=== PATIENT | male | born 1980 | race Caucasian/White ===

== ENCOUNTER 2017-07-03 11:44 | Emergency (ER) | payer MEDICAID | END 2017-07-03 14:00 | disposition home or self-care (01) | LOC: D.ER 11:44 | DX: G43.909 Migraine, unspecified, not intractable, without status migrainosus (principal); I10 Essential (primary) hypertension ==

== ENCOUNTER 2017-07-23 19:09 | Emergency (ER) | payer MEDICAID | END 2017-07-23 21:05 | disposition home or self-care (01) | LOC: D.ER 19:09 | DX: B35.3 Tinea pedis (principal); M72.2 Plantar fascial fibromatosis; I10 Essential (primary) hypertension ==

== ENCOUNTER 2017-08-25 15:55 | Emergency (ER) | payer MEDICAID ==
[2017-10-29 15:03] VITALS: BMI 34.9
== END 2017-08-25 18:59 | disposition home or self-care (01) ==
LOC: D.ER 15:55
DX: J01.90 Acute sinusitis, unspecified (principal); H10.32 Unspecified acute conjunctivitis, left eye; I10 Essential (primary) hypertension

== ENCOUNTER → 2017-10-21 15:43 | Emergency (ER) | payer MEDICAID ==
[~2017-10-21 15:43] MED LIST: OMNICEF300 MG PO; ZESTRIL20 MG PO
[2017-10-29 15:03] VITALS: BMI 34.9
== END | disposition home or self-care (01) ==
LOC: D.ER 15:43
DX: L03.113 Cellulitis of right upper limb (principal); I10 Essential (primary) hypertension

== ENCOUNTER 2017-10-29 11:04 | Inpatient (IN) | payer MEDICAID ==
[~2017-10-29] VITALS: Ht 182.9 cm; Wt 114.5 kg
[2017-10-29 13:08] LABS: BASOPHILS 1.2 % (0-2); EOSINOPHILS 1.2 % (0-7); HEMOGLOBIN 15.6 g/dL (13.5-17.5); LYMPHOCYTES 23.6 % (15-50); MCHC 35.5 g/dL (31.0-37.0); MCV 87.3 fL (80.0-100.0); MEAN PLATELET VOLUME 9.6 fL (7.4-10.4); MONOCYTES 23.8 % (2-11); NEUTROPHILS 50.2 % (40-80); PLATELET COUNT 137 10x3/uL (130-400); RBC 5.04 10x6/uL (4.20-6.10); RDW 13.6 % (11.5-14.5)
[2017-10-29 13:17] LABS: CALC OSMOLALITY 274 mosm/kg (275-300); CALCIUM 9.1 mg/dL (8.5-10.1); CARBON DIOXIDE 30.7 mmol/L (21.0-32.0); CHLORIDE - SERUM 101 mmol/L (98-107); GLUCOSE 130 mg/dL (74-106); POTASSIUM - SERUM 3.4 mmol/L (3.5-5.1); SODIUM 138 mmol/L (136-145); UREA NITROGEN 5 mg/dL (7-18); eGFR NON AFRICAN AMERICAN 88 mL/min (90-120)
--- NOTE | 2017-10-29 14:10 | NUR ---
RECEIVED PT IN BED AAOX4 RESP UNLABORED SKIN W/D LEFT FACE AROUND LT EYE RED AND SWOLLEN I&D DONE TO JUST BELOW LT EYE INCISION NOTED PT STUTTERS AT TIMES DENIES ANY NEEDS OR PAIN AT THIS TIME SALINE LOCK INTACT AND PATENT TO LAC SITE FREE OF REDNESS OR EDEMA WILL CONTINUE TO MONITOR
[2017-10-29] MEDS ORDERED: ZESTRIL20 MG PO (14:13)
[2017-10-29 14:15] VITALS: BMI 34.9
[2017-10-29 15:03] VITALS: Ht 182.9 cm; Wt 114.5 kg
[2017-10-29 17:21] VITALS: BP 116/68
[2017-10-29 21:08] VITALS: BP 107/55
[2017-10-30 01:27] VITALS: BP 109/73
[2017-10-30 06:51] VITALS: BP 95/56
--- NOTE | 2017-10-30 07:37 | NUR ---
PT AWAKE IN BED WATCHING TV. NO C/O VOICED. WILL MONITOR.
[2017-10-30 08:24] VITALS: BP 112/66
[2017-10-30 12:11] VITALS: BP 122/80
[2017-10-30 17:02] VITALS: BP 126/77
--- NOTE | 2017-10-30 19:45 | NUR ---
PT RESTING IN BEDSIDE CHAIR. ALERT/ORIENTED. LARGE WOUND UNDER LEFT EYE. CURRENTLY WITH ABT INFUSING. NOTED SPEECH IMPEDIMENT. VERY PLEASANT, NO NEEDS AT THIS TIME. CPOC.
[2017-10-30 21:07] VITALS: BP 125/83
[2017-10-31 00:58] VITALS: BP 120/81
--- NOTE | 2017-10-31 02:29 | NUR ---
IV TEFLARO UP AND INFUSING. ALSO PROVIDED PT WITH A PAIN PILL FOR FACIAL DISCOMFORT. CPOC
[2017-10-31 05:19] VITALS: BP 114/75
--- NOTE | 2017-10-31 07:25 | NUR ---
PATIENT IN BED WATCHING TELEVISION AT THIS TIME. PATIENT DENIES ANY NEEDS OR REQUESTS AND DENIES ANY PAIN. NO DRAINAGE NOTED AT THIS TIME FROM LEFT EYE. NO PROBLEMS NOTED. CALL LIGHT AND WATER ARE WITHIN REACH.
[2017-10-31 08:02] VITALS: BP 23/66
--- NOTE | 2017-10-31 09:59 | NUR ---
UP IN CHAIR WITH CALL LIGHT IN REACH. WILL MONITOR NEEDS.
[2017-10-31 13:05] VITALS: BP 137/82
[2017-10-31] MEDS ORDERED: OMNICEF300 MG PO (14:16)
--- NOTE | 2017-10-31 15:45 | NUR ---
DISCHARGE INSTRUCTIONS REVIEWED WITH PATIENT. IV REMOVED, CATHETER INTACT. NO PROBLEMS NOTED. PATIENT LEAVES FACILITY AT THIS TIME VIA PRIVATE TRANSPORTATION.
--- NOTE | 2017-10-31 17:17 | NUR ---
Patient Name: EVA LAAMR Admission Status: ER Accout number: [id number] Admission Date: 10-29-2017 : 1980 Admission Diagnosis: Attending: GILES HORTON Current LOS: 2 Anticipated DC Date: 10-31-2017 Planned Disposition: Home Primary Insurance: MEDICAID [place] LATE ENTRY: Discharge Planning Comments: * Is the patient Alert and Oriented? Yes 0 * How many steps to enter\exit or inside your home? 5-6 0 * PCP DR. GUTIÉRREZ 0 * Pharmacy [facility] ON [address] * Preadmission Environment Home with Family 0 * ADLs Independent 0 * Equipment None 0 * Other Equipment NO MEDICAL EQUIPMENT PROVIDER PREFERENCE 0 * List name and contact numbers for known caregivers / representatives who currently or will assist patient after discharge: DWIGHT DANIELLE, AUNT, UNKNOWN PHONE NUMBER 0 * Community resources currently utilized None 0 * Please name any agencies selected above. NONE 0 * Additional services required to return to the preadmission environment? No 0 * Can the patient safely return to the preadmission environment? Yes 0 * Has this patient been hospitalized within the prior 30 days at any hospital? No 0 CM MET WITH PT IN ROOM TO DISCUSS DISCHARGE PLANNING AND NEEDS. PT REPORTS LIVING AT HOME INDEPENDENTLY WITH HIS AUNT AND UNCLE IN [place]. PT HAS NO MEDICAL EQUIPMENT AND NO OUTSIDE SERVICES ASSISTING IN THE HOME. CM DISCUSSED AVAILABILITY OF HOME HEALTH, REHAB SERVICES AND MEDICAL EQUIPMENT. PT DENIES DISCHARGE NEEDS, REPORTS HE WILL BE DRIVING HIS JEEP FOR DISCHARGE HOME TODAY. 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 Viscosity Tester: Yakov Jose
--- NOTE | 2017-12-02 09:56 | DS ---
PATIENT:EVA LAMAR :[birth year] MEDICAL RECORD: [id number] DISCHARGE SUMMARY ADMISSION DATE: 10/29/17 DISCHARGE DATE: 10/31/17 DATE OF ADMISSION: 10/29/2017. DATE OF DISCHARGE: 10/31/2017. ADMISSION DIAGNOSES: 1. Left facial abscess. 2. Hypertension. 3. Tobacco dependence syndrome. DISCHARGE DIAGNOSES: 1. Left facial abscess. 2. Hypertension. 3. Tobacco dependence syndrome. PROCEDURE: None. CONSULTATIONS: None. REPORT OF HOSPITALIZATION: The patient was admitted to the hospital with swelling and abscess of the left face. This had been opened up and drained and he has been started on Bactrim, but he continued to have symptoms and swelling. He was eventually seen in our ER and admitted to the hospital. The patient had cultures taken and these cultures eventually showed that it was E. coli that grew in the wound that was resistant to Bactrim. Once we had these results back and with IV antibiotics, we noticed an improvement in his symptoms and the swelling and eventually was felt to be stable for discharge home. DISCHARGE INSTRUCTIONS: Return to clinic or call with any questions or concerns, fevers, chills, or worsening pain. DISCHARGE MEDICATIONS: Omnicef 300 mg q.12 hours and lisinopril 20 mg daily. He is to return to clinic and see me as needed. TRANSINT:[id number] Voice Confirmation ID: [id number] DOCUMENT ID: [id number] GILES HORTON MD at 0956 CC: [id number] DICTATION DATE: 11/17/17 1227 SPLINE ROLLING MACHINE JOB SETTER: 11/17/17 1651 DIS IN 10/31/17 [id number] [place] [address]
== END 2017-10-31 15:47 | disposition home or self-care (01) | DRG 603 ==
LOC: D.ER 11:04 → D.M2 12:44 → D.SDCHOLD 10-31 13:38 → D.M2 10-31 13:38
PROVIDERS: Emergency Medicine; ADMIT Surgery
DX: L02.01 Cutaneous abscess of face (principal); L03.211 Cellulitis of face; I10 Essential (primary) hypertension; B96.20 Unspecified Escherichia coli [E. coli] as the cause of diseases classified elsewhere

== ENCOUNTER 2017-12-18 18:36 | Emergency (ER) | payer MEDICAID ==
[2017-10-29 15:03] VITALS: BMI 34.9
== END 2017-12-18 20:00 | disposition home or self-care (01) ==
LOC: D.ER 18:36
DX: L03.011 Cellulitis of right finger (principal); I10 Essential (primary) hypertension

== ENCOUNTER 2017-12-29 16:42 | Emergency (ER) | payer MEDICAID ==
[2017-10-29 15:03] VITALS: BMI 34.9
== END 2017-12-29 21:08 | disposition home or self-care (01) ==
LOC: D.ER 16:42
DX: S46.911A Strain of unspecified muscle, fascia and tendon at shoulder and upper arm level, right arm, initial encounter (principal); X58.XXXA Exposure to other specified factors, initial encounter; Y93.89 Activity, other specified; Y92.89 Other specified places as the place of occurrence of the external cause; F17.200 Nicotine dependence, unspecified, uncomplicated

== ENCOUNTER 2018-01-18 13:50 | Emergency (ER) | payer MEDICAID ==
[2017-10-29 15:03] VITALS: BMI 34.9
== END 2018-01-18 16:32 | disposition home or self-care (01) ==
LOC: D.ER 13:50
DX: J11.1 Influenza due to unidentified influenza virus with other respiratory manifestations (principal)

== ENCOUNTER 2018-02-06 11:00 | Emergency (ER) | payer MEDICAID ==
[2017-10-29 15:03] VITALS: BMI 34.9
[2018-02-06 12:03] LABS: EOSINOPHILS 2.3 % (0-7); HEMATOCRIT 44.9 % (42.0-54.0); HEMOGLOBIN 15.6 g/dL (13.5-17.5); LYMPHOCYTES 37.4 % (15-50); MCH 29.8 pg (26.0-34.0); MCHC 34.7 g/dL (31.0-37.0); MCV 85.9 fL (80.0-100.0); MEAN PLATELET VOLUME 9.9 fL (7.4-10.4); MONOCYTES 14.4 % (2-11); NEUTROPHILS 43.9 % (40-80); PLATELET COUNT 140 10x3/uL (130-400); RBC 5.23 10x6/uL (4.20-6.10); RDW 13.3 % (11.5-14.5); WBC 3.1 10x3/uL (4.8-10.8)
[2018-02-06 12:09] LABS: ALBUMIN 3.5 g/dL (3.4-5.0); ALKALINE PHOSPHATASE 83 U/L (46-116); ALT (SGPT) 42 U/L (10-68); CALC OSMOLALITY 285 mosm/kg (275-300); CALCIUM 8.8 mg/dL (8.5-10.1); CARBON DIOXIDE 28.6 mmol/L (21.0-32.0); CHLORIDE - SERUM 105 mmol/L (98-107); CREATININE - SERUM 0.9 mg/dL (0.6-1.3); GLUCOSE 149 mg/dL (74-106); POTASSIUM - SERUM 3.5 mmol/L (3.5-5.1); PROTEIN - SERUM 7.1 g/dL (6.4-8.2); SODIUM 143 mmol/L (136-145); UREA NITROGEN 6 mg/dL (7-18); eGFR NON AFRICAN AMERICAN > 90 mL/min (90-120)
[2018-02-06 12:33] LABS: CKMB 3.6 U/L (0.0-3.6); CREATINE KINASE 132 UL (21-232)
[2018-02-06 12:36] LABS: TROPONIN-I < 0.017 ng/mL (0.000-0.060)
== END 2018-02-06 13:41 | disposition home or self-care (01) ==
LOC: D.ER 11:00
PROVIDERS: Family Medicine
DX: R07.89 Other chest pain (principal); R09.1 Pleurisy; I10 Essential (primary) hypertension

== ENCOUNTER 2018-02-17 13:07 | Emergency (ER) | payer MEDICAID ==
[2017-10-29 15:03] VITALS: BMI 34.9
== END 2018-02-17 16:58 | disposition home or self-care (01) ==
LOC: D.ER 13:07
DX: L03.213 Periorbital cellulitis (principal); I10 Essential (primary) hypertension

== ENCOUNTER 2018-02-24 14:15 | Emergency (ER) | payer MEDICAID ==
[2017-10-29 15:03] VITALS: BMI 34.9
== END 2018-02-24 17:14 | disposition home or self-care (01) ==
LOC: D.ER 14:15
DX: T36.1X5A Adverse effect of cephalosporins and other beta-lactam antibiotics, initial encounter (principal); Y92.019 Unspecified place in single-family (private) house as the place of occurrence of the external cause

== ENCOUNTER 2018-03-17 12:09 | Emergency (ER) | payer MEDICAID ==
[2017-10-29 15:03] VITALS: BMI 34.9
== END 2018-03-17 14:00 | disposition home or self-care (01) ==
LOC: D.ER 12:09
DX: L02.415 Cutaneous abscess of right lower limb (principal); I10 Essential (primary) hypertension

== ENCOUNTER 2018-03-24 16:33 | Emergency (ER) | payer MEDICAID ==
[2017-10-29 15:03] VITALS: BMI 34.9
== END 2018-03-24 19:05 | disposition home or self-care (01) ==
LOC: D.ER 16:33
DX: M79.661 Pain in right lower leg (principal); I10 Essential (primary) hypertension

== ENCOUNTER 2018-04-18 18:19 | Emergency (ER) | payer MEDICAID ==
[~2018-04-18] VITALS: Ht 182.9 cm; Wt 115.9 kg
[2018-04-18 18:31] VITALS: Ht 182.9 cm; Wt 115.9 kg
[2018-04-18] MEDS ORDERED: CLEOCIN HCL300 MG PO (20:20)
[2018-04-18 20:42] VITALS: BP 120/78
== END 2018-04-18 20:42 | disposition home or self-care (01) ==
LOC: D.ER 18:19
DX: H04.559 Acquired stenosis of unspecified nasolacrimal duct (principal); H10.33 Unspecified acute conjunctivitis, bilateral; F17.200 Nicotine dependence, unspecified, uncomplicated

== ENCOUNTER 2018-04-20 14:03 | Emergency (ER) | payer MEDICAID ==
[~2018-04-20] VITALS: Ht 182.9 cm; Wt 115.9 kg
[~2018-04-20 14:03] MED LIST changes: +CLEOCIN HCL300 MG PO
[2018-04-20 14:14] VITALS: Ht 182.9 cm; Wt 115.9 kg
[2018-04-20] MEDS ORDERED: MUPIROCIN22 GM TOPICAL (16:43)
[2018-04-20] MEDS ORDERED: CLEOCIN HCL300 MG PO (16:43)
[2018-04-20 18:08] VITALS: BP 140/87
== END 2018-04-20 18:11 | disposition home or self-care (01) ==
LOC: D.ER 14:03
DX: L02.01 Cutaneous abscess of face (principal)

== ENCOUNTER 2018-05-18 20:18 | Emergency (ER) | payer MEDICAID ==
[~2018-05-18] VITALS: Ht 182.9 cm; Wt 135.9 kg
[~2018-05-18 20:18] MED LIST changes: +MUPIROCIN22 GM TOPICAL
[2018-05-18 21:19] VITALS: BP 128/74; Ht 182.9 cm; Wt 135.9 kg
== END 2018-05-19 00:03 | disposition left against medical advice (07) ==
LOC: D.ER 20:18
DX: H04.552 Acquired stenosis of left nasolacrimal duct (principal); F17.200 Nicotine dependence, unspecified, uncomplicated

== ENCOUNTER 2018-05-25 20:19 | Emergency (ER) | payer MEDICAID ==
[~2018-05-25] VITALS: Ht 182.9 cm; Wt 115.9 kg
[2018-05-25 20:23] VITALS: Ht 182.9 cm; Wt 115.9 kg
[2018-05-25] MEDS ORDERED: NORCO 7.5/325 T1 TA1 PO (20:51)
[2018-05-25] MEDS ORDERED: CLEOCIN HCL300 MG PO (20:51)
[2018-05-25 21:06] VITALS: BP 134/72
[2018-05-26] MEDS ORDERED: BACTRIM DS TABL1 TAB PO (20:35)
== END 2018-05-25 21:06 | disposition home or self-care (01) ==
LOC: D.ER 20:19
DX: K02.9 Dental caries, unspecified (principal); I10 Essential (primary) hypertension

== ENCOUNTER 2018-05-26 17:02 | Emergency (ER) | payer MEDICAID ==
[~2018-05-26] VITALS: Ht 182.9 cm; Wt 115.9 kg
[~2018-05-26 17:02] MED LIST changes: +NORCO 7.5/325 T1 TA1 PO
[2018-05-26 17:36] VITALS: Ht 182.9 cm; Wt 115.9 kg
[2018-05-26] MEDS ORDERED: BACTRIM DS TABL1 TAB PO (20:35)
[2018-05-26 21:30] VITALS: BP 130/80
== END 2018-05-26 21:20 | disposition home or self-care (01) ==
LOC: D.ER 17:02
DX: H44.002 Unspecified purulent endophthalmitis, left eye (principal); I10 Essential (primary) hypertension

== ENCOUNTER 2018-05-27 14:48 | Emergency (ER) | payer MEDICAID ==
[~2018-05-27] VITALS: Ht 182.9 cm; Wt 115.9 kg
[~2018-05-27 14:48] MED LIST changes: +BACTRIM DS TABL1 TAB PO
[2018-05-27 14:53] VITALS: Ht 182.9 cm; Wt 115.9 kg
[2018-05-27 18:14] VITALS: BP 133/80
[2018-05-28] MEDS ORDERED: OCUFLOX 0.3 % OP5 ML LEFT EYE (17:19)
[2018-05-28] MEDS ORDERED: K-DUR20 MEQ PO (17:20)
== END 2018-05-27 18:15 | disposition home or self-care (01) ==
LOC: D.ER 14:48
DX: H05.012 Cellulitis of left orbit (principal); I10 Essential (primary) hypertension

== ENCOUNTER 2018-05-28 13:19 | Emergency (ER) | payer MEDICAID ==
[~2018-05-28] VITALS: Ht 182.9 cm; Wt 115.9 kg
[2018-05-28 13:33] VITALS: Ht 182.9 cm; Wt 115.9 kg
[2018-05-28 15:12] LABS: BASOPHILS 2.3 % (0-2); EOSINOPHILS 2.8 % (0-7); HEMATOCRIT 44.7 % (42.0-54.0); HEMOGLOBIN 15.9 g/dL (13.5-17.5); IMMATURE GRANULOCYTES 0.2 % (0-5); LYMPHOCYTES 20.7 % (15-50); MCH 31.2 pg (26.0-34.0); MCHC 35.6 g/dL (31.0-37.0); MCV 87.8 fL (80.0-100.0); MEAN PLATELET VOLUME 10.1 fL (7.4-10.4); MONOCYTES 16.8 % (2-11); NEUTROPHILS 57.2 % (40-80); RBC 5.09 10x6/uL (4.20-6.10); RDW 13.5 % (11.5-14.5); WBC 4.4 10x3/uL (4.8-10.8)
[2018-05-28 15:13] LABS: PLATELET COUNT 173 10x3/uL (130-400)
[2018-05-28 15:37] LABS: ALBUMIN 3.7 g/dL (3.4-5.0); ALKALINE PHOSPHATASE 89 U/L (46-116); ALT (SGPT) 36 U/L (10-68); BILIRUBIN - TOTAL 0.67 mg/dL (0.2-1.3); CALC OSMOLALITY 277 mosm/kg (275-300); CALCIUM 8.8 mg/dL (8.5-10.1); CARBON DIOXIDE 28.7 mmol/L (21.0-32.0); CHLORIDE - SERUM 101 mmol/L (98-107); CREATININE - SERUM 0.8 mg/dL (0.6-1.3); GLUCOSE 138 mg/dL (74-106); PROTEIN - SERUM 7.9 g/dL (6.4-8.2); SODIUM 140 mmol/L (136-145); UREA NITROGEN 3 mg/dL (7-18); eGFR NON AFRICAN AMERICAN > 90 mL/min (90-120)
[2018-05-28 15:43] LABS: POTASSIUM - SERUM 2.9 mmol/L (3.5-5.1)
[2018-05-28] MEDS ORDERED: OCUFLOX 0.3 % OP5 ML LEFT EYE (17:19)
[2018-05-28] MEDS ORDERED: K-DUR20 MEQ PO (17:20)
[2018-05-28 17:36] VITALS: BP 150/80
== END 2018-05-28 17:37 | disposition home or self-care (01) ==
LOC: D.ER 13:19
PROVIDERS: Family Medicine
DX: H00.036 Abscess of eyelid left eye, unspecified eyelid (principal)

== ENCOUNTER 2018-06-17 14:02 | Emergency (ER) | payer MEDICAID ==
[~2018-06-17] VITALS: Ht 182.9 cm; Wt 115.9 kg
[~2018-06-17 14:02] MED LIST changes: +K-DUR20 MEQ PO; +OCUFLOX 0.3 % OP5 ML LEFT EYE
[2018-06-17 14:21] VITALS: Ht 182.9 cm; Wt 115.9 kg
[2018-06-17] MEDS ORDERED: KEFLEX500 MG PO (14:59)
[2018-06-17] MEDS ORDERED: MEDROL DOSE PACK4 MG PO (14:59)
[2018-06-17] MEDS ORDERED: BACTRIM DS TABL1 TAB PO (14:59)
[2018-06-17 16:47] VITALS: BP 132/68
== END 2018-06-17 16:48 | disposition home or self-care (01) ==
LOC: D.ER 14:02
DX: L08.9 Local infection of the skin and subcutaneous tissue, unspecified (principal); I10 Essential (primary) hypertension

== ENCOUNTER 2018-07-16 14:07 | Emergency (ER) | payer MEDICAID ==
[~2018-07-16] VITALS: Ht 182.9 cm; Wt 115.9 kg
[~2018-07-16 14:07] MED LIST changes: +KEFLEX500 MG PO; +MEDROL DOSE PACK4 MG PO
[2018-07-16 14:14] VITALS: Ht 182.9 cm; Wt 115.9 kg
[2018-07-16] MEDS ORDERED: VIBRAMYCIN 100100 MG PO (16:02)
[2018-07-16] MEDS ORDERED: VOLTAREN75 MG PO (16:02)
[2018-07-16 17:05] VITALS: BP 125/78
== END 2018-07-16 17:05 | disposition home or self-care (01) ==
LOC: D.ER 14:07
DX: L03.211 Cellulitis of face (principal)

== ENCOUNTER 2018-07-18 19:34 | Emergency (ER) | payer MEDICAID ==
[~2018-07-18] VITALS: Ht 182.9 cm; Wt 115.9 kg
[~2018-07-18 19:34] MED LIST changes: +VIBRAMYCIN 100100 MG PO; +VOLTAREN75 MG PO
[2018-07-18 19:50] VITALS: Ht 182.9 cm; Wt 115.9 kg
[2018-07-18] MEDS ORDERED: VIBRAMYCIN 100100 MG PO (21:24)
[2018-07-18 21:40] VITALS: BP 126/77
== END 2018-07-18 21:41 | disposition home or self-care (01) ==
LOC: D.ER 19:34
DX: L03.211 Cellulitis of face (principal); I10 Essential (primary) hypertension

== ENCOUNTER 2018-07-20 19:34 | Emergency (ER) | payer MEDICAID ==
[~2018-07-20] VITALS: Ht 182.9 cm; Wt 113.6 kg
[2018-07-20 19:37] VITALS: Ht 182.9 cm; Wt 113.6 kg
[2018-07-20] MEDS ORDERED: CLEOCIN HCL300 MG PO (22:28)
[2018-07-20] MEDS ORDERED: TORADOL10 MG PO (22:30)
[2018-07-20 23:23] VITALS: BP 127/81
== END 2018-07-20 23:24 | disposition home or self-care (01) ==
LOC: D.ER 19:34
DX: H04.302 Unspecified dacryocystitis of left lacrimal passage (principal); I10 Essential (primary) hypertension

== ENCOUNTER 2018-07-23 20:13 | Emergency (ER) | payer MEDICAID ==
[~2018-07-23] VITALS: Ht 182.9 cm; Wt 115.7 kg
[~2018-07-23 20:13] MED LIST changes: +TORADOL10 MG PO
[2018-07-23 20:19] VITALS: Ht 182.9 cm; Wt 115.7 kg
[2018-07-23] MEDS ORDERED: GENTAMICIN SULF30 G1 TOPICAL (21:09)
[2018-07-23 21:30] VITALS: BP 151/81
== END 2018-07-23 21:31 | disposition home or self-care (01) ==
LOC: D.ER 20:13
DX: H04.301 Unspecified dacryocystitis of right lacrimal passage (principal); I10 Essential (primary) hypertension

== ENCOUNTER 2018-11-12 16:06 | Emergency (ER) | payer MEDICAID ==
[~2018-11-12] VITALS: Ht 182.9 cm; Wt 115.9 kg
[~2018-11-12 16:06] MED LIST changes: +GENTAMICIN SULF30 G1 TOPICAL
[2018-11-12 16:15] VITALS: Ht 182.9 cm; Wt 115.9 kg
[2018-11-12] MEDS ORDERED: VIGAMOX3 ML LEFT EYE (18:08)
[2018-11-12 19:12] VITALS: BP 150/95
== END 2018-11-12 19:13 | disposition home or self-care (01) ==
LOC: D.ER 16:06
DX: H04.302 Unspecified dacryocystitis of left lacrimal passage (principal); I10 Essential (primary) hypertension

== ENCOUNTER 2019-03-25 16:25 | Emergency (ER) | payer MEDICAID ==
[~2019-03-25 16:25] MED LIST changes: +VIGAMOX3 ML LEFT EYE
[2019-03-25 16:26] VITALS: BMI 34.6
[2019-03-25] MEDS ORDERED: HYDROCORTISO28.35 G1 TOPICAL (18:26)
[2019-03-25 18:37] VITALS: BP 118/77
== END 2019-03-25 18:37 | disposition home or self-care (01) ==
LOC: D.ER 16:25
DX: L30.9 Dermatitis, unspecified (principal); M25.522 Pain in left elbow; M25.521 Pain in right elbow

== ENCOUNTER 2019-04-28 15:42 | Emergency (ER) | payer MEDICAID ==
[~2019-04-28 15:42] MED LIST changes: +HYDROCORTISO28.35 G1 TOPICAL
[2019-04-28 15:51] VITALS: Ht 182.9 cm
[2019-04-28] MEDS ORDERED: VOLTAREN75 MG PO (17:35)
[2019-04-28 18:11] VITALS: BP 123/69
== END 2019-04-28 18:32 | disposition home or self-care (01) ==
LOC: D.ER 15:42
DX: M79.602 Pain in left arm (principal)

== ENCOUNTER 2020-01-16 14:37 | Emergency (ER) | payer MEDICAID ==
[~2020-01-16] VITALS: Ht 182.9 cm; Wt 118.2 kg
[2020-01-16 14:50] VITALS: Ht 182.9 cm; Wt 118.2 kg
[2020-01-16] MEDS ORDERED: CYCLOBENZAPRINE10 MG PO (15:16)
[2020-01-16 17:23] VITALS: BP 111/71
== END 2020-01-16 17:24 | disposition home or self-care (01) ==
LOC: D.ER 14:37
DX: M79.10 Myalgia, unspecified site (principal); M54.9 Dorsalgia, unspecified; M79.602 Pain in left arm; I10 Essential (primary) hypertension; X50.0XXA Overexertion from strenuous movement or load, initial encounter; Y93.9 Activity, unspecified; Y92.9 Unspecified place or not applicable

== ENCOUNTER 2020-01-22 15:15 | Emergency (ER) | payer MEDICAID ==
[~2020-01-22] VITALS: Ht 182.9 cm; Wt 118.2 kg
[~2020-01-22 15:15] MED LIST changes: +CYCLOBENZAPRINE10 MG PO
[2020-01-22 15:45] VITALS: Ht 182.9 cm; Wt 118.2 kg
[2020-01-22] MEDS ORDERED: PREDNISONE20 MG PO (18:50)
[2020-01-22] MEDS ORDERED: BACLOFEN20 M1 PO (18:50)
[2020-01-22 19:58] VITALS: BP 120/82
== END 2020-01-22 19:58 | disposition home or self-care (01) ==
LOC: D.ER 15:15
DX: M25.512 Pain in left shoulder (principal); S49.92XA Unspecified injury of left shoulder and upper arm, initial encounter; I10 Essential (primary) hypertension

== ENCOUNTER 2020-05-05 13:54 | Emergency (ER) | payer MEDICARE, MEDICAID ==
[~2020-05-05] VITALS: Ht 182.9 cm; Wt 115.9 kg
[~2020-05-05 13:54] MED LIST changes: +BACLOFEN20 M1 PO; +PREDNISONE20 MG PO
[2020-05-05 14:13] VITALS: Ht 182.9 cm; Wt 115.9 kg
[2020-05-05 16:03] VITALS: BP 120/78
== END 2020-05-05 16:04 | disposition home or self-care (01) ==
LOC: D.ER 13:54
DX: M25.531 Pain in right wrist (principal); E11.9 Type 2 diabetes mellitus without complications; I10 Essential (primary) hypertension; Z72.0 Tobacco use

== ENCOUNTER 2020-05-31 12:57 | Emergency (ER) | payer MEDICARE, MEDICAID ==
[2020-05-31 13:00] VITALS: Ht 182.9 cm
[2020-05-31] MEDS ORDERED: NORFLEX100 MG PO (14:35)
[2020-05-31] MEDS ORDERED: VOLTAREN75 MG PO (14:35)
[2020-05-31 16:00] VITALS: BP 130/89
== END 2020-05-31 15:40 | disposition home or self-care (01) ==
LOC: D.ER 12:57
DX: M54.2 Cervicalgia (principal); M62.838 Other muscle spasm; E11.9 Type 2 diabetes mellitus without complications; I10 Essential (primary) hypertension

== ENCOUNTER 2020-06-25 13:16 | Emergency (ER) | payer MEDICARE, MEDICAID ==
[~2020-06-25] VITALS: Ht 182.9 cm; Wt 115.9 kg
[~2020-06-25 13:16] MED LIST changes: +NORFLEX100 MG PO
[2020-06-25 13:41] VITALS: Ht 182.9 cm; Wt 115.9 kg
[2020-06-25] MEDS ORDERED: VOLTAREN75 MG PO (15:04)
[2020-06-25 15:30] VITALS: BP 137/97
== END 2020-06-25 15:31 | disposition home or self-care (01) ==
LOC: D.ER 13:16
DX: M25.512 Pain in left shoulder (principal); M77.9 Enthesopathy, unspecified; E11.9 Type 2 diabetes mellitus without complications; I10 Essential (primary) hypertension

== ENCOUNTER 2021-03-04 11:40 | Emergency (ER) | payer MEDICARE, MEDICAID ==
[~2021-03-04] VITALS: Ht 182.9 cm; Wt 115.9 kg
[2021-03-04 11:45] VITALS: BP 127/88; Ht 182.9 cm; Wt 115.9 kg
[2021-03-04] MEDS ORDERED: CEPHALEXIN500 M1 PO (11:51)
== END 2021-03-04 12:13 | disposition home or self-care (01) ==
LOC: D.ER 11:40
DX: L03.113 Cellulitis of right upper limb (principal); S50.861A Insect bite (nonvenomous) of right forearm, initial encounter; W57.XXXA Bitten or stung by nonvenomous insect and other nonvenomous arthropods, initial encounter; Y93.9 Activity, unspecified; Y92.9 Unspecified place or not applicable

== ENCOUNTER 2021-03-31 10:28 | Emergency (ER) | payer MEDICARE, MEDICAID ==
[~2021-03-31] VITALS: Ht 182.9 cm; Wt 115.9 kg
[~2021-03-31 10:28] MED LIST changes: +CEPHALEXIN500 M1 PO
[2021-03-31 10:33] VITALS: BP 124/80; Ht 182.9 cm; Wt 115.9 kg
[2021-03-31] MEDS ORDERED: DICLOFENAC SODI50 MG PO (10:40)
== END 2021-03-31 10:50 | disposition home or self-care (01) ==
LOC: D.ER 10:28
DX: M79.641 Pain in right hand (principal); M25.531 Pain in right wrist